=== PATIENT | female | born 1935 | race Caucasian/White ===

== ENCOUNTER → 2017-07-09 | Outpatient (CLI) | payer OTHER ==
[~2017-07-09] VITALS: Ht 162.6 cm; Wt 73.9 kg
[~2017-07-09] MED LIST: ADULT LOW DOSE81 MG PO; ALPRAZOLAM 0.50.5 M1; ALPRAZOLAM 0.50.5 M1 PO; ALPRAZOLAM 0.50.5 MG PO; AMBEREN; ASPIRIN EC81 M1 PO; ATORVASTATIN CA40 MG PO; BANOPHEN25 M1 PO; BUMETANIDE 0.50.5 M1 OR; BUMETANIDE 0.50.5 M1 PO; CARVEDILOL12.5 MG PO; CARVEDILOL25 MG PO; CELEBREX 200 M200 M1 PO; CLONAZEPAM 1 MG1 M1 PO; COLACE100 MG PO; COREG6.25 MG PO; CRESTOR20 MG PO; DITROPAN XL15 MG PO; DUCOSATE SODIUM PO; ENDOCET 5-3251 EACH PO; FIBERCON625 M1 PO; FLOMAX0.4 MG PO; FOSINOPRIL 10 M10 M1 PO; FOSINOPRIL SODI20 M1 PO; GLUCOSA-CHOND-1 EACH PO; HYDROCODON-ACE1 EAC7 PO; HYDROCODON-ACE1 EAC8 PO; HYDROCODONE-ACE15 ML PO; HYDROCODONE-AP1 EA14 PO; HYDROCODONE-AP1 EAC6 PO; IRON PO; IRON159 MG PO; IRON55 MG PO; ISOSORBIDE DINI30 MG PO; KEFLEX500 M1 PO; LASIX 20 MG TAB20 MG PO; LEVAQUIN 250 M250 MG PO; LIDODERM 5%1 PATCH TOP; MACROBID 100 M100 M1 PO; MILK OF MA400 MG/5 M PO; MULTI-VITAMIN1 EAC5 PO; MULTIVITAMIN W1 EAC5 PO; MYRBETRIQ25 MG PO; MYRBETRIQ50 MG PO; NAMENDA 10 MG T10 MG PO; NORCO 5-325 TA1 EACH PO; OMEPRAZOLE20 M2 PO; OS-CAL 500+D C1 EACH PO; OXYBUTYNIN CHLO10 MG PO; PAROXETINE PO; PAXIL 20 MG TAB20 M1 PO; PAXIL10 MG PO; PERCOCET 5-3251 EACH PO; PEXEVA40 MG PO; PRAVACHOL80 MG PO; PRAVASTATIN SOD80 MG PO; PRILOSEC 20 MG20 MG PO; RESTORIL30 MG PO; ROBAXIN 750 MG750 MG PO; SUPRAX400 M1 PO; SYNTHROID50 MCG PO; SYNTHROID75 MCG PO; TOFRANIL50 MG PO; TOVIAZ8 MG PO; TRAMADOL 50 MG50 MG PO; TURMERIC 500 M1 EACH PO; TYLENOL325 MG PO; VITAMIN B-12500 MCG PO; ZOFRAN ODT4 MG DISSOLVE; ZOFRAN ODT4 MG PO
--- NOTE | ~2017-07-09 | HPC ---
[facility] [address] [place] [address] PAIN MANAGEMENT CONSULTATION Name: KARLA BROOKS [id number] Admission: 07/09/17 Attend Phys: Aaron Shin DO Discharge: Date of : 33 Report #: [id number] THIS REPORT FOR: //name// CC: Darin Mosquera DATE OF SERVICE: 07/09/2017 CHIEF COMPLAINT: Right pelvic pain. HISTORY OF PRESENT ILLNESS: As you know, the patient is an 82-year-old female who has been suffering from right pelvic pain and right low back pain that presented in April 2017. She has been followed by Orthopedic Surgery who indicated that there was a possibility the patient suffered a spontaneous pelvic fracture. The patient underwent injections around the suspected fracture site. This did not improve symptoms. It was believed the patient may be suffering from pain in the lower back. She was referred to our clinic to discuss the possibility of treatment options. She comes to us today with imaging, but the imaging showed the pelvic fracture is not present, nor do we have information about the lower back. She indicates today pain is continuous, steady and constant. Describes the pain as shooting, cramping, aching, crushing, gnawing, throbbing, pounding, sharp and tender, places current pain score at 5/10, daily average at 8/10, worst pain has been is 10/10. The patient says pain is exacerbated with walking and standing as well as sitting, improves with hydrocodone. She has been referred to our service, discussed options for treatment. PAST MEDICAL HISTORY: 1. Scarlet fever. 2. Rheumatic fever. 3. Anemia. 4. Hypertension. 5. Coronary artery disease. 6. Hypothyroidism. 7. Chronic colon problems. 8. Multiple emotional problems. 9. Degenerative joint disease. 10. Osteoarthritis. 11. Peptic ulcer disease. PAST SURGICAL HISTORY: 1. X-STOP surgery. 2. Bilateral hip replacement. 3. Partial thyroidectomy. 4. Bilateral knee replacements. [facility] [address] [place] [address] PAIN MANAGEMENT CONSULTATION Name: KARLA BROOKS REHANA Room #: REG [facility].#: [id number] Admission: 07/09/17 Attend Phys: Aaron Shin DO Discharge: Date of : 33 Report #: [id number] 5. Reduction mammoplasty. 6. Permanent pacemaker placement. 7. Cholecystectomy. 8. Bilateral cataract surgery. SOCIAL HISTORY: The patient denies tobacco, alcohol, IV or illicit drug use. She is retired, retired 20 years ago. She is accompanied by her , present in room today. REVIEW OF SYSTEMS: Positive for fatigue and weakness, wearing corrective eyewear, sore throat, voice changes, shortness of breath, heart trouble, shortness of breath while walking or lying flat, nausea, vomiting, frequent diarrhea, constipation, nocturia, incontinence, dribbling to urine, sexual difficulty, lightheadedness, dizziness, numbness and tingling sensations, nervousness, depression, thyroid disease, excessive thirst, urination, heat and cold intolerance., right pelvic pain. All other review of systems negative per 12-point review of systems than those listed in history of present illness. Pain impact score 52/70 indicating severe interference of daily activities secondary to pain. ALLERGIES: PENICILLIN, BACTRIM, MACROBID, LEVOTHYROXINE, NITROFURANTOIN, ALL ANTI-INFLAMMATORIES, CODEINE, DEMEROL, DARVON. CURRENT MEDICATIONS: Paroxetine 40 mg per day, alprazolam 0.5 mg 3 times a day, temazepam 30 mg p.o. at bedtime, furosemide 40 mg per day, fosinopril 20 mg once a day, carvedilol 6.25 mg twice a day, atorvastatin 40 mg per day, levothyroxine 75 mcg per day, omeprazole 20 mg per day, hydrocodone 7.5/325 one tab every 6 hours p.r.n. for pain, Myrbetriq 50 mg once a day, tamsulosin 0.4 mg once a day, multivitamin 1 tab per day, aspirin 81 mg per day, Colace 100 mg 2 times a day, FiberCon 625 mg 2 tabs per day, milk of magnesia 1 per day, vitamin B12 one tablet per day. IMAGING: CT pelvis without contrast obtained on 07/02/2017 shows bilateral hip replacements without evidence of fracture or definitive hardware loosening, well corticalized ossific fragment just adjacent to the right lesser trochanter consistent with old trauma. No focal abnormality in the region of the right pubic ramus noted. Mild osteitis pubis is noted. Sigmoid diverticulosis without evidence of diverticulitis. PQRS: The patient does have a history of osteoarthritis, no rheumatoid arthritis. She is not on blood thinners. She has near complete interference of daily activities secondary to pain. She is a high fall risk. She is using a cane and periodically roller walker for ambulation. She has not had a specific fall, but is extreme risk for fall due to deconditioning and pain. She is receiving opioids through her primary care physician and not on contract with [address] [address] PAIN MANAGEMENT CONSULTATION Name: KARLA BROOKS [facility] #: [facility] [id number] Admission: 07/09/17 Attend Phys: Aaron Shin DO Discharge: Date of : 33 Report #: [id number]. She is at mild to moderate risk for opioid dependency. Pain score currently 8/10. PHYSICAL EXAMINATION: VITAL SIGNS: Blood pressure 140/73, pulse 70, respiratory rate 16, unlabored. The patient is 100% on room air. Height 5 feet 4 inches tall, weight is 163 pounds, BMI calculated at 28. GENERAL: Well-developed, well-nourished, well-hydrated 82-year-old female who appears her stated age. She is quite emotionally labile and placing pain score at around 8-10/10 depending on activity. HEENT: Normocephalic, atraumatic. Pupils equal, round, reactive to light. Extraocular muscles are intact. Sclerae nonicteric without injection. Cranial nerves 2-12 grossly intact. Speech is fluent. The patient is a poor historian. LUNGS: Clear to auscultation bilaterally. No wheeze, rhonchi or rales. CARDIOVASCULAR: Regular. No appreciable gallop or rub. ABDOMEN: Soft, obese, nontender, nondistended, normoactive bowel sounds. EXTREMITIES: Show no clubbing, no cyanosis, no edema. MUSCULOSKELETAL: Gait is extremely antalgic favoring right lower extremity over left. She is utilizing a roller walker for ambulation. Pain is elicited directly over the right pelvic area radiating around to the back. There is some palpatory tenderness over the lumbar spine. Seated straight leg raising negative. Supine straight leg raising negative. SHAWN test is positive for pain generated in the groin and low back area. Modified Gaenslen's is positive for axial low back pain. She is intact to light touch from L1 through S2 dermatomes. Deep tendon reflexes are diminished bilaterally at the patellar area, 1+/4 at the ankles bilaterally. No ankle clonus. No Babinski. ASSESSMENT: 1. Pelvic pain with possible pelvic fracture. 2. Chronic low back pain. 3. Chronic intractable pain. PLAN: 1. The patient has been referred back to our clinic for evaluation for suspected low back pain. The patient indicates that she was recently advised by her orthopedic physician's diversional therapist's assistant that she may have a pelvic fracture and this would correlate with the patient's pain and distribution. I do not have imaging to confirm this pelvic fracture and the patient's imaging that was present today does not show any type of fracture, though apparently imaging was completed recently, which did show suspected fracture and the patient underwent injections in and around to the fracture site. She indicates that the injections were "extremely painful and difficult to tolerate." The patient received no improvement in symptoms with this injection series. She sought further evaluation through her orthopedic surgeon who advised the patient that there is a possibility her symptoms may be related to the back. At that visit, she sought evaluation through our clinic. Given the discrepancy of different [address] [address] PAIN MANAGEMENT CONSULTATION Name: CECILIAKARLA KIMBALL Room #: REG [facility]#: [id number] Admission: 07/09/17 Attend Phys: Aaron Shin DO Discharge: Date of : 33 Report #: [id number] pain generators, I do recommend the patient undergo further imaging so that we can determine if a pelvic fracture does exist and if that is the case, whether stabilization would be necessary. I do not have the imaging available to me from the orthopedic surgeons and I recommend at least we gain some information with the x-ray. 2. The patient will be sent for x-ray of the pelvic area. We will assess for possible fracture. The patient can contact to clinic first thing in the morning to obtain results. If no fracture is noted, we would recommend the patient look towards conservative treatment options for low back issues and further evaluation of the lumbar spine may be necessary with MRI if the patient does not have this available. 3. We have made no changes in the patient's medical management at this time. Recommend the patient continue to take the opioids that she is receiving from her primary care team. This would be beneficial to maintain on the medication for at least a short period of time as workup continues. 4. The patient can return to our clinic on an as needed basis. Based on the findings on the x-ray, she may ultimately need to be seen again by Orthopedics if the pelvic fracture is confirmed. If no fracture is confirmed, she could return to see either our clinic or her primary care for treatment for potential back pain issues. 5. We will see the patient back in followup visit on an as needed basis. We are hopeful information from the x-ray imaging will help determine the course of treatment. We will be available to see her back on an as needed basis. <ELECTRONICALLY SIGNED> By: Aaron Shin DO 07/22/17 0926 0855 1216 Aaron Shin DO /nt
[2017-07-09 10:20] VITALS: BP 140/73
== END ==
LOC: PAIN 07:04 → RAD 07:04 → PAIN 14:45
DX: R10.2 Pelvic and perineal pain (principal); G89.29 Other chronic pain; M54.5 Low back pain; D64.9 Anemia, unspecified; I10 Essential (primary) hypertension; I25.10 Atherosclerotic heart disease of native coronary artery without angina pectoris; E03.9 Hypothyroidism, unspecified; M19.90 Unspecified osteoarthritis, unspecified site; Z96.643 Presence of artificial hip joint, bilateral; Z96.653 Presence of artificial knee joint, bilateral; Z90.49 Acquired absence of other specified parts of digestive tract; Z98.890 Other specified postprocedural states; Z88.1 Allergy status to other antibiotic agents; Z88.6 Allergy status to analgesic agent; Z88.5 Allergy status to narcotic agent

== ENCOUNTER 2017-10-06 18:26 | Emergency (ER) | payer OTHER ==
[~2017-10-06] VITALS: Ht 162.6 cm; Wt 72.6 kg
--- NOTE | ~2017-10-06 | EKG ---
[place] [address] [facility] [employer] [place] [address] ELECTROCARDIOGRAM REPORT Name: KARLA BROOKS [id number] Admission: 10/06/17 Attend Phys: Discharge: 10/06/17 Date of : 33 Report #: [id number] THIS REPORT FOR: //name// [facility] ED Test Date: 2017-10-06 Test Time: 20:09:00 Pat Name: KARLA BROOKS Department: Room: Gender: F Outdoor Recreation Specialist: MICHELLE : 1935 Requested By: Abimael Arevalo Order Number: [id number] MD: Carlos Kelley Measurements Intervals [place] Rate: 63 P: -20 MD: 250 QRS: -58 QRSD: 196 T: 116 QT: 493 QTc: 505 Interpretive Statements Sinus rhythm with ventricular pacing Compared to ECG 12/06/2015 07:25:44 First degree AV block now present Left bundle-branch block now present Electronically Signed On 10-06-2017 22:59:58 CDT by Carlos Kelley [email or web address] <ELECTRONICALLY SIGNED> By: Carlos Kelley MD 10/06/17 2259 08 08 Carlos Kelley MD /DAMARIS
[~2017-10-06 18:26] MED LIST changes: -BANOPHEN25 M1 PO; -CELEBREX 200 M200 M1 PO; -CLONAZEPAM 1 MG1 M1 PO; -COREG6.25 MG PO; -FIBERCON625 M1 PO; -FOSINOPRIL 10 M10 M1 PO; -HYDROCODON-ACE1 EAC8 PO; -KEFLEX500 M1 PO; -PAXIL 20 MG TAB20 M1 PO; -SYNTHROID50 MCG PO; -TURMERIC 500 M1 EACH PO; -ZOFRAN ODT4 MG DISSOLVE
[2017-10-06 19:10] LABS: ABSOLUTE NEUTROPHILS 3.6 thou/uL (1.4-8.2); BASOPHILS 0.9 % (0.0-2.0); EOSINOPHILS 1.2 % (0.0-3.0); HEMOGLOBIN 12.4 gm/dL (12.0-15.0); MCHC 34.4 g/dL (28.0-37.0); MCV 101.5 fL (80.0-100.0); MONOCYTES 8.2 % (1.0-8.0); PLATELET COUNT 150 thou/uL (150-400); POLYS 64.7 % (36.0-66.0); RBC 3.54 mil/uL (4.20-5.00); RDW 12.9 % (10.5-14.5); WBC 5.6 thou/uL (4.0-11.0)
[2017-10-06] MEDS ORDERED: CELEBREX 200 M200 M1 PO (19:15)
[2017-10-06] MEDS ORDERED: ZOFRAN ODT4 MG DISSOLVE (19:18)
[2017-10-06 19:21] LABS: ANION GAP 5 mmol/L (7-16); BUN 21 mg/dL (7-18); CALCIUM 9.1 mg/dL (8.5-10.1); CHLORIDE 101 mmol/L (98-107); CO2 29 mmol/L (21-32); CREATININE 1.3 mg/dL (0.6-1.0); GLUCOSE 111 mg/dL (74-106); POTASSIUM 3.6 mmol/L (3.5-5.1); SODIUM 135 mmol/L (136-145)
[2017-10-06 19:23] LABS: ALBUMIN 3.7 g/dL (3.4-5.0); LIPASE 157 U/L (73-393)
[2017-10-06 19:38] LABS: SGOT 30 U/L (15-37); SGPT 33 U/L (30-65); TOTAL BILIRUBIN 0.8 mg/dL (<0.1-1.0); TOTAL PROTEIN 6.4 g/dL (6.4-8.2); TROPONIN-I < 0.04 ng/mL (<0.06)
== END 2017-10-06 20:23 | disposition home or self-care (01) ==
LOC: ER 18:26
PROVIDERS: Emergency Medicine
DX: R19.7 Diarrhea, unspecified (principal); G89.4 Chronic pain syndrome; F41.1 Generalized anxiety disorder; Z96.653 Presence of artificial knee joint, bilateral; Z96.643 Presence of artificial hip joint, bilateral; E89.0 Postprocedural hypothyroidism; Z88.1 Allergy status to other antibiotic agents; Z88.0 Allergy status to penicillin; Z88.2 Allergy status to sulfonamides; Z88.8 Allergy status to other drugs, medicaments and biological substances

== ENCOUNTER 2017-10-09 11:32 | Inpatient (IN) | payer OTHER ==
[~2017-10-09] VITALS: Ht 162.6 cm; Wt 69.4 kg
--- NOTE | ~2017-10-09 | EKG ---
[place] [address] [facility] [place] [address] ELECTROCARDIOGRAM REPORT Name: KARLA BROOKS Room #: 453-P ADM IN M.R.#: [id number] Admission: 10/09/17 Attend Phys: Aaron Lindquist DO Discharge: Date of : 33 Report #: [id number] THIS REPORT FOR: //name// [facility] ED Test Date: 2017-10-09 Test Time: 12:14:51 Pat Name: KARLA BROOKS Department: Room: 170 10 Gender: F Medical Social Consultant: Nirmala COLÓN RN : 1935 Requested By: Ricardo Sommer Order Number: [id number] MD: Mina Zamora Measurements Intervals [place] Rate: 90 P: 84 CA: 204 QRS: -65 QRSD: 191 T: 116 QT: 427 QTc: 523 Interpretive Statements Atrial-sensed ventricular-paced complexes No further rhythm analysis attempted due to paced rhythm Compared to ECG 10/06/2017 20:09:00 Intrinsic depolarizations are no longer present Electronically Signed On 10-10-2017 8:48:53 CDT by Mina Zamora [email or web address] <ELECTRONICALLY SIGNED> By: Mina Zamora MD, FACC 10/10/17 0848 1214 1214 Mina Zamora MD, [facility] /EPI
--- NOTE | ~2017-10-09 | EKG ---
[place] [address] [place] [address] ELECTROCARDIOGRAM REPORT Name: MULUAMELIEALRichard KIMBALL Room #: 453-P ADM IN M.R.#: [id number] Admission: 10/09/17 Attend Phys: Aaron Lindquist DO Discharge: Date of : 33 Report #: [id number] THIS REPORT FOR: //name// [facility] ED Test Date: 2017-10-09 Test Time: 11:47:41 Pat Name: KARLA BROOKS Department: Room: Gender: F Java Web Application Developer: Nirmala COLÓN RN : 1935 Requested By: Ricardo Sommer Order Number: [id number] MD: Mina Zamora Measurements Intervals [place] Rate: 104 P: -28 WI: 255 QRS: -63 QRSD: 186 T: 117 QT: 416 QTc: 548 Interpretive Statements Ventricular-paced complexes No further analysis attempted due to paced rhythm Compared to ECG 10/06/2017 20:09:00 Intrinsic depolarizations are now present Electronically Signed On 10-10-2017 8:48:30 CDT by Mina Zamora [email or web address] <ELECTRONICALLY SIGNED> By: Mina Zamora MD, [facility] 10/10/17 0848 1147 1147 Mina Zamora MD, [facility] /EPI
[~2017-10-09 11:32] MED LIST changes: +CELEBREX 200 M200 M1 PO; +ZOFRAN ODT4 MG DISSOLVE
[2017-10-09 11:33] VITALS: BP 142/46
[2017-10-09 12:47] LABS: ABSOLUTE NEUTROPHILS 8.8 thou/uL (1.4-8.2); BASOPHILS 0.1 % (0.0-2.0); EOSINOPHILS 0.4 % (0.0-3.0); HEMATOCRIT 35.7 % (37.0-47.0); HEMOGLOBIN 12.2 gm/dL (12.0-15.0); LYMPHOCYTES 2.4 % (24.0-44.0); MCH 34.7 pg (26.0-34.0); MCHC 34.1 g/dL (28.0-37.0); MCV 101.9 fL (80.0-100.0); MONOCYTES 3.2 % (1.0-8.0); PLATELET COUNT 101 thou/uL (150-400); POLYS 93.9 % (36.0-66.0); RBC 3.51 mil/uL (4.20-5.00); RDW 12.7 % (10.5-14.5); WBC 9.4 thou/uL (4.0-11.0)
[2017-10-09 13:00] LABS: ANION GAP 7 mmol/L (7-16); BUN 23 mg/dL (7-18); CALCIUM 8.6 mg/dL (8.5-10.1); CHLORIDE 100 mmol/L (98-107); CO2 28 mmol/L (21-32); CREATININE 1.2 mg/dL (0.6-1.0); GLUCOSE 102 mg/dL (74-106); POTASSIUM 3.6 mmol/L (3.5-5.1); SODIUM 135 mmol/L (136-145)
[2017-10-09 13:07] LABS: ALBUMIN 3.7 g/dL (3.4-5.0); DIRECT BILIRUBIN 0.3 mg/dL (<0.1-0.3); SGOT 71 U/L (15-37); SGPT 70 U/L (30-65); TOTAL BILIRUBIN 1.1 mg/dL (<0.1-1.0); TOTAL PROTEIN 6.3 g/dL (6.4-8.2); TROPONIN-I < 0.04 ng/mL (<0.06)
[2017-10-09 13:58] LABS: URINE BILIRUBIN NEGATIVE (Negative); URINE BLOOD NEGATIVE (Negative); URINE CLARITY CLEAR; URINE COLOR YELLOW; URINE GLUCOSE-RANDOM* NEGATIVE (Negative); URINE KETONES NEGATIVE (Negative); URINE NITRITE-REFLEX NEGATIVE (Negative); URINE PROTEIN (DIPSTICK) NEGATIVE (Negative); URINE UROBILINOGEN 0.2 E.U./dl (0.2-1.0)
[2017-10-09 13:59] LABS: URINE LEUKOCYTES-REFLEX 1+ (Negative)
[2017-10-09 14:19] LABS: SQUAMOUS 4-10 Moderate /LPF (0-3)
[2017-10-09 14:20] LABS: BACTERIA-REFLEX 1-9 Few /HPF (None Seen); CASTS None Seen /LPF (None Seen); CRYSTALS None Seen /LPF (None Seen); MUCUS 4-6 Moderate strn/LPF (None Seen); URINE RBC 0-2 Rare /HPF (0-2)
[2017-10-09 17:05] VITALS: BP 114/78
[2017-10-09 17:22] VITALS: BP 138/57
[2017-10-09 17:41] VITALS: BP 148/64
[2017-10-09 19:37] VITALS: BP 134/55
[2017-10-10 04:46] LABS: CALCIUM 8.6 mg/dL (8.5-10.1); CREATININE 1.2 mg/dL (0.6-1.0); POTASSIUM 3.4 mmol/L (3.5-5.1)
[2017-10-10 04:52] LABS: ABSOLUTE NEUTROPHILS 6.3 thou/uL (1.4-8.2); BASOPHILS 0.1 % (0.0-2.0); EOSINOPHILS 0.6 % (0.0-3.0); HEMATOCRIT 31.5 % (37.0-47.0); HEMOGLOBIN 10.9 gm/dL (12.0-15.0); LYMPHOCYTES 6.1 % (24.0-44.0); MCH 35.2 pg (26.0-34.0); MCHC 34.6 g/dL (28.0-37.0); MCV 101.8 fL (80.0-100.0); MONOCYTES 5.2 % (1.0-8.0); PLATELET COUNT 96 thou/uL (150-400); RDW 12.9 % (10.5-14.5); WBC 7.2 thou/uL (4.0-11.0)
[2017-10-10 06:15] VITALS: BP 125/44
[2017-10-10 09:12] VITALS: BP 117/58
[2017-10-10] MEDS ORDERED: PAXIL 20 MG TAB20 M1 PO (13:34)
[2017-10-10 14:54] VITALS: BP 117/58
== END 2017-10-10 15:37 | disposition home or self-care (01) | DRG 690 ==
LOC: ER 11:32 → EROBS 14:40 → 4W 14:40 → ENTRNSPT 10-10 15:32 → 4W 10-10 15:37
PROVIDERS: Family Medicine; Physician Assistant
DX: N39.0 Urinary tract infection, site not specified (principal); E89.0 Postprocedural hypothyroidism; F41.9 Anxiety disorder, unspecified; R07.9 Chest pain, unspecified; G89.29 Other chronic pain; M54.9 Dorsalgia, unspecified; I10 Essential (primary) hypertension; F32.9 Major depressive disorder, single episode, unspecified; K21.9 Gastro-esophageal reflux disease without esophagitis; Z96.653 Presence of artificial knee joint, bilateral; Z96.643 Presence of artificial hip joint, bilateral; Z90.49 Acquired absence of other specified parts of digestive tract; Z98.42 Cataract extraction status, left eye; Z98.41 Cataract extraction status, right eye; Z95.0 Presence of cardiac pacemaker; Z79.82 Long term (current) use of aspirin; Z79.899 Other long term (current) drug therapy; Z88.1 Allergy status to other antibiotic agents; Z88.5 Allergy status to narcotic agent; Z88.0 Allergy status to penicillin; Z88.2 Allergy status to sulfonamides; Z88.8 Allergy status to other drugs, medicaments and biological substances
CPT/HCPCS: 10045

== ENCOUNTER 2017-10-31 19:54 | Inpatient (IN) | payer OTHER ==
[~2017-10-31] VITALS: Ht 165.1 cm; Wt 75.3 kg
--- NOTE | ~2017-10-31 | HC ---
[facility] [place] [address] CONSULTATION Name: KARLA BROOKS Room #: 221-P [facility] IN M.R.#: [id number] Admission: 10/31/17 Attend Phys: Wilbur Esparza, Discharge: 11/03/17 Date of : 33 Report #: [id number] THIS REPORT FOR: //name// CC: Ange Esparza TYPE OF REPORT: Infectious diseases consultation. REASON FOR CONSULTATION: I was asked to evaluate concerning urinary tract infection. HISTORY OF PRESENT ILLNESS: The patient was an 82-year old who was admitted on 10/31/2017 with dysuria. She has been on outpatient oral therapy. Placed on ciprofloxacin. Subsequently, she has developed rash to her extremities. She does have a history of having a rash to Levaquin. Urinalysis showed many wbc's and moderate bacteria. She had repeat study done today, which shows evidence of a few bacteria and no bacteria seen. She did have yeast present. Her dysuria has resolved. Overall, feels normal. She states back to her baseline. The patient has had issues with recurrent urinary tract infection for the last 10 years. She had bladder suspension surgery and she states she still has not improved her issues. She has urinary incontinence. No incomplete emptying reported. She states she sees her urologist, Dr. Giordano who does postvoid evaluations noting complete emptying of her bladder. She does wear a pad for incontinence. ALLERGIES: Multiple including PENICILLIN with rash although she does tolerate cephalosporins, LEVAQUIN, CIPRO, NITROFURANTOIN, SULFA, MORPHINE, NONSTEROIDAL ANTI-INFLAMMATORIES, COMPAZINE, CODEINE, HYDROCHLOROTHIAZIDE, DEMEROL and PROPOXYPHENE. MEDICATIONS: As noted on her MAR including the ciprofloxacin. Prior to her admission, she was on Celebrex, Zofran, vitamin B12, Colace, Restoril, multivitamin, Lipitor, Coreg, fosinopril, Synthroid, clonazepam, FiberCon, hydrocodone, Lasix, omeprazole, tamsulosin, aspirin, Os-Sameer, magnesium, mirabegron and clonazepam. PAST MEDICAL HISTORY: Bilateral total hip arthroplasties, bilateral total knee arthroplasty, permanent pacemaker, cholecystectomy, thyroidectomy, cataract surgery, has anxiety, urinary incontinence and recurrent urinary tract infections. FAMILY HISTORY: Noncontributory. SOCIAL HISTORY: Nonsmoker. No significant alcohol intake. REVIEW OF SYSTEMS: Denies any cardiopulmonary, GI or joint issues. [address] [address] CONSULTATION Name: KARLA BROOKS Room #: 221-P DIS IN .R.#: [id number] Admission: 10/31/17 Attend Phys: Wilbur Esparza DO Discharge: 11/03/17 Date of : 33 Report #: [id number] PHYSICAL EXAMINATION: VITAL SIGNS: She is afebrile, hemodynamically stable, alert and cooperative, sitting up in her chair, eating her dinner. HEENT: Unremarkable. NECK: Supple. No adenopathy. SKIN: Several erythematous patches to her upper and lower extremities. LUNGS: Clear. HEART: Regular, without murmur. ABDOMEN: Soft and nontender. No CVA tenderness. EXTREMITIES: Unremarkable. GENITAL AND RECTAL: Not performed. LABORATORY STUDIES: Urinalysis as noted above. Urine culture 10,000 Pseudomonas aeruginosa, pansensitive from 10/31/2017. Blood cultures are negative. Sodium 138, potassium 4.3, bicarbonate 25 and creatinine 1.3. Folic acid 38. TSH 0.8. Vitamin B 1324. Hemoglobin 10.4; WBC 4.9; platelet count 127,000 and differential unremarkable. IMPRESSION: An 82-year old with recurring cystitis. She has responded to a 4-day course of ciprofloxacin. Now having rash most likely from the ciprofloxacin. She is afebrile with no urinary tract symptoms at this time. Her white count is normal. Urinalysis markedly improved. RECOMMENDATIONS: Recommend discontinuation of the ciprofloxacin and I would observe off antibiotics at this point in time. I did recommend appropriate vulvar hygiene techniques along with frequent changing of her hygiene pad. Follow up with primary care if estrogen cream may be of benefit. We would consider adding cranberry juice to her diet. We will see how she does over the next week or so. If she should have recurring symptoms, we would be more than happy to reevaluate as an outpatient. She states she has had full workup by Urology regarding her voiding issues. By: 1750 0118 Abimael Khan MD /nt
[~2017-10-31 19:54] MED LIST changes: +PAXIL 20 MG TAB20 M1 PO
[2017-10-31 19:55] VITALS: BP 136/71
[2017-10-31] MEDS ORDERED: KEFLEX500 M1 PO (20:14)
[2017-10-31 20:38] LABS: URINE CLARITY SL CLOUDY; URINE COLOR ORANGE
[2017-10-31 20:46] LABS: ICTOTEST (BILI CONFIRMATORY) Negative (Negative); URINE REDUCING SUBSTANCE NEGATIVE
[2017-10-31 20:50] LABS: RENAL EPITHELIAL CELLS 0-3 Few /LPF (None Seen); SQUAMOUS 0-3 Few /LPF (0-3); TRANSITIONAL EPITHEL CELL 0-3 Few /LPF (None Seen); URINE WBC-REFLEX >25 Many /HPF (0-5); WBC CLUMPS Few (None Seen)
[2017-10-31 20:51] LABS: CASTS None Seen /LPF (None Seen); CRYSTALS None Seen /LPF (None Seen); MUCUS 0-3 Light strn/LPF (None Seen); URINE RBC 0-2 Rare /HPF (0-2)
[2017-10-31 20:57] LABS: SSA (PROTEIN CONFIRMATORY) NEGATIVE (Negative)
[2017-10-31 21:20] LABS: ABSOLUTE NEUTROPHILS 2.8 thou/uL (1.4-8.2); BASOPHILS 0.6 % (0.0-2.0); EOSINOPHILS 1.9 % (0.0-3.0); HEMATOCRIT 30.6 % (37.0-47.0); HEMOGLOBIN 10.4 gm/dL (12.0-15.0); MCH 34.6 pg (26.0-34.0); MCHC 33.9 g/dL (28.0-37.0); MCV 102.1 fL (80.0-100.0); PLATELET COUNT 127 thou/uL (150-400); POLYS 57.5 % (36.0-66.0); RDW 12.4 % (10.5-14.5); WBC 4.9 thou/uL (4.0-11.0)
[2017-10-31 21:42] LABS: CALCIUM 8.8 mg/dL (8.5-10.1); CREATININE 1.4 mg/dL (0.6-1.0); POTASSIUM 3.9 mmol/L (3.5-5.1)
[2017-10-31 21:45] LABS: ALBUMIN 3.2 g/dL (3.4-5.0); TOTAL BILIRUBIN 0.5 mg/dL (<0.1-1.0); TOTAL PROTEIN 5.6 g/dL (6.4-8.2)
[2017-10-31 22:22] VITALS: BP 136/71
[2017-10-31 22:40] VITALS: BP 138/74
[2017-10-31] MEDS ORDERED: ATORVASTATIN CA40 MG PO (23:03)
[2017-10-31] MEDS ORDERED: COREG6.25 MG PO (23:04)
[2017-10-31] MEDS ORDERED: FOSINOPRIL 10 M10 M1 PO (23:09)
[2017-10-31] MEDS ORDERED: SYNTHROID50 MCG PO (23:10)
[2017-10-31] MEDS ORDERED: PAXIL10 MG PO (23:12)
[2017-10-31] MEDS ORDERED: CLONAZEPAM 1 MG1 M1 PO (23:12)
[2017-10-31] MEDS ORDERED: FIBERCON625 M1 PO (23:14)
[2017-10-31] MEDS ORDERED: TURMERIC 500 M1 EACH PO (23:15)
[2017-10-31] MEDS ORDERED: HYDROCODON-ACE1 EAC8 PO (23:17)
[2017-10-31 23:23] VITALS: BP 166/69
[2017-11-01 04:00] VITALS: BP 172/66
[2017-11-01 09:20] VITALS: BP 174/84
[2017-11-01 11:23] LABS: TSH 0.849 uIU/mL (0.358-3.740)
[2017-11-01] MEDS ORDERED: CLONAZEPAM 1 MG1 M1 PO (14:40)
[2017-11-01 21:22] VITALS: BP 162/60
[2017-11-02 08:21] VITALS: BP 170/72
[2017-11-02 09:14] LABS: CALCIUM 9.8 mg/dL (8.5-10.1); CREATININE 1.3 mg/dL (0.6-1.0); POTASSIUM 4.3 mmol/L (3.5-5.1)
[2017-11-02 17:58] VITALS: BP 149/61
[2017-11-02 19:56] VITALS: BP 145/66
[2017-11-03 08:30] VITALS: BP 184/81
[2017-11-03 12:43] VITALS: BP 139/64
[2017-11-03 16:18] LABS: URINE BILIRUBIN NEGATIVE (Negative); URINE BLOOD NEGATIVE (Negative); URINE CLARITY CLEAR; URINE COLOR YELLOW; URINE GLUCOSE-RANDOM* NEGATIVE (Negative); URINE KETONES NEGATIVE (Negative); URINE NITRITE-REFLEX NEGATIVE (Negative); URINE PROTEIN (DIPSTICK) NEGATIVE (Negative); URINE SPECIFIC GRAVITY <= 1.005 (1.005-1.035); URINE UROBILINOGEN 0.2 E.U./dl (0.2-1.0)
[2017-11-03 16:20] LABS: URINE LEUKOCYTES-REFLEX 1+ (Negative)
[2017-11-03 16:32] LABS: CASTS None Seen /LPF (None Seen); SQUAMOUS 0-3 Few /LPF (0-3); URINE RBC None Seen /HPF (0-2); URINE WBC-REFLEX 6-15 Few /HPF (0-5)
[2017-11-03 16:33] LABS: BACTERIA-REFLEX None Seen /HPF (None Seen); CRYSTALS None Seen /LPF (None Seen); MUCUS 0-3 Light strn/LPF (None Seen); YEAST-REFLEX Present (None Seen)
[2017-11-03] MEDS ORDERED: BANOPHEN25 M1 PO (18:00)
[2017-11-03 18:17] VITALS: BP 159/80
[2017-11-03 18:25] VITALS: BP 159/80
== END 2017-11-03 18:45 | disposition home health service (06) | DRG 682 ==
LOC: ER 19:54 → EROBS 22:07 → SICU 22:07 → 4W 22:39 → SICU 11-01 14:07
PROVIDERS: Hospitalist; Internal Medicine Geriatric Medicine; Nurse Practitioner Family
DX: N17.9 Acute kidney failure, unspecified (principal); E43 Unspecified severe protein-calorie malnutrition; N39.0 Urinary tract infection, site not specified; N18.3 Chronic kidney disease, stage 3 (moderate); F41.9 Anxiety disorder, unspecified; I12.9 Hypertensive chronic kidney disease with stage 1 through stage 4 chronic kidney disease, or unspecified chronic kidney disease; Z95.0 Presence of cardiac pacemaker; Z79.899 Other long term (current) drug therapy; Z79.82 Long term (current) use of aspirin; Z88.2 Allergy status to sulfonamides; Z88.6 Allergy status to analgesic agent; Z88.8 Allergy status to other drugs, medicaments and biological substances
CPT/HCPCS: 10040; 15000

== ENCOUNTER 2018-07-29 05:35 | Inpatient (IN) | payer OTHER ==
[~2018-07-29] VITALS: Ht 165.1 cm; Wt 77.1 kg
[~2018-07-29 05:35] MED LIST changes: +BANOPHEN25 M1 PO; +CLONAZEPAM 1 MG1 M1 PO; +COREG6.25 MG PO; +FIBERCON625 M1 PO; +FOSINOPRIL 10 M10 M1 PO; +HYDROCODON-ACE1 EAC8 PO; +KEFLEX500 M1 PO; +SYNTHROID50 MCG PO; +TURMERIC 500 M1 EACH PO
[2018-07-29 05:36] VITALS: BP 139/55
--- NOTE | 2018-07-29 06:00 | NUR ---
CONTACTED LAB FOR ASSISTANCE IN OBTAINING LABS
--- NOTE | 2018-07-29 06:07 | NUR ---
PT IS NOT ABLE TO PROVIDE A URINE SAMPLE YET DUE TO DEHYDRATION
[2018-07-29 06:44] LABS: ABSOLUTE NEUTROPHILS 3.3 thou/uL (1.4-8.2); BASOPHILS 0.1 % (0.0-2.0); HEMATOCRIT 37.4 % (37.0-47.0); HEMOGLOBIN 12.7 gm/dL (12.0-15.0); LYMPHOCYTES 6.5 % (24.0-44.0); MCH 33.6 pg (26.0-34.0); MCHC 33.9 g/dL (28.0-37.0); MCV 99.3 fL (80.0-100.0); MONOCYTES 4.2 % (1.0-8.0); PLATELET COUNT 128 thou/uL (150-400); POLYS 89.2 % (36.0-66.0); RBC 3.76 mil/uL (4.20-5.00); RDW 13.5 % (10.5-14.5); WBC 3.7 thou/uL (4.0-11.0)
[2018-07-29 06:58] LABS: CALCIUM 8.9 mg/dL (8.5-10.1); CREATININE 1.3 mg/dL (0.6-1.0); POTASSIUM 3.7 mmol/L (3.5-5.1)
[2018-07-29 07:04] LABS: ALBUMIN 3.2 g/dL (3.4-5.0); TOTAL BILIRUBIN 0.7 mg/dL (<0.1-1.0); TOTAL PROTEIN 6.2 g/dL (6.4-8.2)
[2018-07-29 11:10] LABS: URINE BILIRUBIN NEGATIVE (Negative); URINE BLOOD TRACE (Negative); URINE CLARITY CLEAR; URINE COLOR YELLOW; URINE GLUCOSE-RANDOM* NEGATIVE (Negative); URINE KETONES NEGATIVE (Negative); URINE LEUKOCYTES-REFLEX NEGATIVE (Negative); URINE PROTEIN (DIPSTICK) NEGATIVE (Negative); URINE SPECIFIC GRAVITY <= 1.005 (1.005-1.035); URINE UROBILINOGEN 0.2 E.U./dl (0.2-1.0)
[2018-07-29 11:12] LABS: URINE NITRITE-REFLEX POSITIVE (Negative)
[2018-07-29 11:30] LABS: CASTS None Seen /LPF (None Seen); CRYSTALS None Seen /LPF (None Seen); SQUAMOUS 4-10 Moderate /LPF (0-3)
[2018-07-29 11:31] LABS: URINE RBC 0-2 Rare /HPF (0-2); URINE WBC-REFLEX 6-15 Few /HPF (0-5)
[2018-07-29 12:28] VITALS: BP 144/47
[2018-07-29 12:30] VITALS: BP 144/47
[2018-07-29 13:00] VITALS: BP 142/49
[2018-07-29] MEDS ORDERED: ZOFRAN ODT4 MG DISSOLVE ×2 (16:20)
[2018-07-29 18:07] VITALS: BP 142/49
== END 2018-07-29 17:35 | disposition home or self-care (01) | DRG 682 ==
LOC: ER 05:35 → ICU 10:05 → EROBS 10:05 → ICU 12:55
PROVIDERS: Emergency Medicine; ADMIT Hospitalist
DX: N17.9 Acute kidney failure, unspecified (principal); E43 Unspecified severe protein-calorie malnutrition; N39.0 Urinary tract infection, site not specified; K52.9 Noninfective gastroenteritis and colitis, unspecified; K29.70 Gastritis, unspecified, without bleeding; E86.0 Dehydration; I10 Essential (primary) hypertension; F41.9 Anxiety disorder, unspecified; F32.9 Major depressive disorder, single episode, unspecified; E78.5 Hyperlipidemia, unspecified; E03.9 Hypothyroidism, unspecified; R26.81 Unsteadiness on feet; R32 Unspecified urinary incontinence; Z95.0 Presence of cardiac pacemaker; Z79.899 Other long term (current) drug therapy; Z88.1 Allergy status to other antibiotic agents; Z88.5 Allergy status to narcotic agent; Z88.2 Allergy status to sulfonamides; Z88.8 Allergy status to other drugs, medicaments and biological substances; Z88.6 Allergy status to analgesic agent
CPT/HCPCS: 10196

== ENCOUNTER 2018-07-30 15:46 | Inpatient (IN) | payer OTHER ==
[~2018-07-30] VITALS: Ht 165.1 cm; Wt 77.1 kg
[2018-07-30 15:46] VITALS: BP 141/56
[2018-07-30 16:31] LABS: ABSOLUTE NEUTROPHILS 1.9 thou/uL (1.4-8.2); BASOPHILS 0.5 % (0.0-2.0); EOSINOPHILS 0.4 % (0.0-3.0); HEMOGLOBIN 10.9 gm/dL (12.0-15.0); LYMPHOCYTES 26.9 % (24.0-44.0); MCH 33.8 pg (26.0-34.0); MCHC 34.1 g/dL (28.0-37.0); MONOCYTES 10.6 % (1.0-8.0); PLATELET COUNT 110 thou/uL (150-400); POLYS 61.6 % (36.0-66.0); RBC 3.23 mil/uL (4.20-5.00); RDW 13.3 % (10.5-14.5); WBC 3.1 thou/uL (4.0-11.0)
[2018-07-30 16:39] LABS: CALCIUM 8.5 mg/dL (8.5-10.1); CREATININE 1.3 mg/dL (0.6-1.0); POTASSIUM 3.4 mmol/L (3.5-5.1)
[2018-07-30 17:15] VITALS: BP 140/60
[2018-07-30 17:20] VITALS: BP 147/62
[2018-07-30 17:39] VITALS: BP 140/71
--- NOTE | 2018-07-30 18:00 | NUR ---
PT ARRIVED AROUND 1744, A&0X4, ACCOMPANIED BY SPOUSE, USES A CANE FOR AMB, HAS BEEN USING A&D OINTMENT ON HER RECTUM FOR LOOSE STOOLS X2 DAYS, WAS IN OUR ED YESTERDAY, YET LEFT AMA, CAME BACK TODAY. PIV, NO SKIN ISSUES UPON ASSESSMENT, RA, ENCOURAGED TO USE CALL LIGHT FOR NEEDS
[2018-07-30 19:16] VITALS: BP 165/73
[2018-07-31 03:24] VITALS: BP 133/55
--- NOTE | 2018-07-31 05:27 | NUR ---
PT IS ALERT ND ORIENTED TO SELF PLACE AND SITUATION. SHE GETS CONFUSED AT TIMES. WITH SOME STRESS INCONTINENCE. REQUIRES ASSIST X 1 TO BSC DUE TO WEAKNESS. NO BM THRO NIGHT-STILL AWAITING STOOL SAMPLE. ON ISOLATION FOR PRESUMPTIVE CDIFF.NO NAUSEA OR VOMITING THRO NIGHT. AFEBRILE. ON CLR LIQUIDS. TAKES MEDS OKAY. FALL PREC IN PLACE. WILL CONTINUE WITH POC TILL EOS.
[2018-07-31 05:51] LABS: HEMATOCRIT 30.5 % (37.0-47.0); HEMOGLOBIN 10.1 gm/dL (12.0-15.0); MCH 33.1 pg (26.0-34.0); MCV 100.1 fL (80.0-100.0); PLATELET COUNT 104 thou/uL (150-400); RBC 3.05 mil/uL (4.20-5.00); RDW 13.4 % (10.5-14.5); WBC 2.7 thou/uL (4.0-11.0)
[2018-07-31 06:06] LABS: CALCIUM 8.5 mg/dL (8.5-10.1); MAGNESIUM 1.6 mg/dL (1.8-2.4); POTASSIUM 3.7 mmol/L (3.5-5.1)
[2018-07-31 06:34] LABS: ABSOLUTE NEUTROPHILS 1.4 thou/uL (1.4-8.2)
[2018-07-31 06:35] LABS: ANISOCYTOSIS 2+; PLATELET ESTIMATE DECREASED
--- NOTE | 2018-07-31 12:32 | NUR ---
ASSESSMENT-PT LIVES WITH HER IN AN INDEPENDENT APT AT [facility]. SHE USES A CANE TO GET AROUND AND DOES HER ADLS. SHE HAS BARS AROUND HER TOILET TO ASSIST WITH GETTING UP/DOWN. THEY GO TO THE DINING AREA FOR DINNER BUT EAT BREAKDAST AND LUNCH IN THEIR APT. BOTH DRIVE. THEY HAVE 3 SONS IN THE AREA. [facility] FOLLOWING TO ASSIST WITH DC PLANNING. PT VOICES NO DC CONCERNS AT THIS TIME.
--- NOTE | 2018-07-31 13:35 | NUR ---
Assumed pt care at 7am.Pt up in chair for breakfast.Good appetite.Assessment completed.vss.Dr Grover and Kailee saw pt this am and contemplating dc pt home in am.Later this afternoon,pt called out and said she will like to dc home today. Dr Grover notified by piano case and bench assembler.Will continue to monitor.
[2018-07-31 17:42] VITALS: BP 149/66
== END 2018-07-31 18:01 | disposition home or self-care (01) | DRG 683 ==
LOC: ER 15:46 → 4E 16:56 → EROBS 16:56 → 4E 17:22
PROVIDERS: Nurse Practitioner; Student in an Organized Health Care Education/Training Program; ADMIT Hospitalist
DX: N17.9 Acute kidney failure, unspecified (principal); N39.0 Urinary tract infection, site not specified; K52.9 Noninfective gastroenteritis and colitis, unspecified; E87.6 Hypokalemia; E86.0 Dehydration; Z96.643 Presence of artificial hip joint, bilateral; Z96.653 Presence of artificial knee joint, bilateral; F41.9 Anxiety disorder, unspecified; E03.9 Hypothyroidism, unspecified; F32.9 Major depressive disorder, single episode, unspecified; E78.5 Hyperlipidemia, unspecified; E83.42 Hypomagnesemia; K21.9 Gastro-esophageal reflux disease without esophagitis; I10 Essential (primary) hypertension; Z87.440 Personal history of urinary (tract) infections; Z95.0 Presence of cardiac pacemaker; Z90.49 Acquired absence of other specified parts of digestive tract; Z98.42 Cataract extraction status, left eye; Z98.41 Cataract extraction status, right eye; Z88.6 Allergy status to analgesic agent; Z88.1 Allergy status to other antibiotic agents; Z88.0 Allergy status to penicillin; Z88.2 Allergy status to sulfonamides; Z88.8 Allergy status to other drugs, medicaments and biological substances; Z79.899 Other long term (current) drug therapy
CPT/HCPCS: 10084

== ENCOUNTER 2018-08-26 21:28 | Emergency (ER) | payer OTHER ==
[~2018-08-26] VITALS: Ht 165.1 cm; Wt 78.0 kg
[2018-08-26] MEDS ORDERED: TRAMADOL 50 MG50 MG PO (22:44)
[2018-08-26 23:23] VITALS: BP 170/60
== END 2018-08-26 23:20 | disposition home or self-care (01) ==
LOC: ER 21:28
DX: S93.602A Unspecified sprain of left foot, initial encounter (principal); W22.8XXA Striking against or struck by other objects, initial encounter; Y93.89 Activity, other specified; Y92.89 Other specified places as the place of occurrence of the external cause; Y99.8 Other external cause status; Z96.643 Presence of artificial hip joint, bilateral; Z96.653 Presence of artificial knee joint, bilateral; Z79.899 Other long term (current) drug therapy; Z88.0 Allergy status to penicillin; Z88.1 Allergy status to other antibiotic agents; Z88.2 Allergy status to sulfonamides; Z88.5 Allergy status to narcotic agent; Z88.6 Allergy status to analgesic agent; Z88.8 Allergy status to other drugs, medicaments and biological substances

== ENCOUNTER → 2018-11-25 | Outpatient (CLI) | payer OTHER | LOC: RAD 13:09 | DX: Z12.31 Encounter for screening mammogram for malignant neoplasm of breast (principal) ==

== ENCOUNTER 2019-11-14 22:10 | Inpatient (IN) | payer OTHER ==
[~2019-11-14] VITALS: Ht 165.1 cm; Wt 84.6 kg
--- NOTE | ~2019-11-14 | EMS ---
[place] [id number] EMS Patient Care Report Name: KARLA BROOKS Room #: REG ONELIA [facility]uddleston#: [id number] Admission: 11/14/19 Attend Phys: Discharge: Date of : 33 Report #: [id number] THIS REPORT FOR: //name// Report Transmitted: 11/15/2019 00:07 EMS Care Summary [place], [place]/[facility] Incident [id number] @ 11/14/2019 21:36 Incident Location [address] [place] [address] Patient KARLA BROOKS Female, 84 Years 1935 Patient Address [address] [place] [address] Patient History Congestive Heart Failure (CHF),Hypertension (HTN),Anxiety, Patient Allergies Penicillin allergy,Bactrim,Nitrofurantoin,Cipro, Patient Medications Paroxetine, Aspirin, Lisinopril, Omeprazole, Iron, Tamsulosin, Clonazepam, Carvedilol, Atorvastatin, Furosemide, Chief Complaint Fracture or dislocation of left wrist Disposition Transported No Lights/[place] Dispatch Reason Falls Transported To [facility] Narrative Initially dispatched with [facility] 28 for a fall. Upon EMS arrival patient was found laying on the ground in her living room, obvious [place] [address] EMS Patient Care Report Name: KARLA BROOKS Room #: REG [place]#: [id number] Admission: 11/14/19 Attend Phys: Discharge: Date of : 33 Report #: [id number] (unsure if fracture or dislocation), skin tear to left upper arm, conscious and alert. Patient reports losing her balance, falling from a standing position, and injuring her arm. She denied any loss of consciousness or other injuries. Patient reported being very upset at the four people in her bed that did not help her when she was yelling for help. There was no signs of other people being in her bed. A CLAUDIA splint was used to splint the patient's arm and she was placed on the stretcher and secured. park attendant reported that family stated that patient had been talking about people that were not actually there for a couple of weeks. Patient was moved to the ambulance and loaded in. She was [facility] without incident. Full report was given to RN prior to signing this document. Initial Vitals @21:59P: 74,R: 18,BP: 184/68,Pain: 8/10,GCS: 15,SpO2: 97,Revised Trauma: 12, Assessments @21:45MENTAL:Hallucinations,SKIN:No Abnormalities,HEENT:Head/Face: No Abnormalities,Eyes: No Abnormalities,Neck/Airway: No Abnormalities,LUNG SOUNDS:ABDOMEN:PELVIS//GI:EXTREMITIES:Left Arm: DIS,Right Arm: No Abnormalities,Left Leg: No Abnormalities,Right Leg: No Abnormalities,PULSE:NEURO:No Abnormalities, Impression Injury of Wrist, Hand, or Fingers Procedures @21:45ALS AssessmentResponse: UnchangedSucceeded@21:46Splint Fx/Disloc.Response: UnchangedSucceeded Timeline 21:33,Call Received 21:33,Dispatch Notified 21:36,Dispatched 21:37,En Route 21:42,On Scene 21:45,At Patient 21:45,ALS Assessment,Response: UnchangedSucceeded, 21:46,Splint Fx/Disloc.,Response: UnchangedSucceeded, 21:59,BP: 184/68 M,PULSE: 74,RR: 18 R,SPO2: 97 Ox,ETCO2: ,BG: ,PAIN: 8,GCS: 15, 22:01,Depart Scene 22:06,At Destination 22:17,Call Closed Disclaimer v1.1 Copyright 2020 [employer] This EMS Care Summary contains data elements from the applicable legal record [address] [address] EMS Patient Care Report Name: KARLA BROOKS Room #: REG ON[facility]udd[facility]#: [id number] Admission: 11/14/19 Attend Phys: Discharge: Date of : 33 Report #: [id number] (which may be displayed differently). It is designed to provide pertinent information for the following purposes: continuity of care, clinical quality, and state data reporting. The complete legal record is available to ED staff and administrators of the receiving hospital in [employer]'s Patient Tracker. All data is provided "as is."
[2019-11-14 22:11] VITALS: BP 172/78
[2019-11-14 23:38] LABS: ABSOLUTE NEUTROPHILS 2.6 thou/uL (1.4-8.2); BASOPHILS 0.6 % (0.0-2.0); EOSINOPHILS 4.4 % (0.0-3.0); HEMATOCRIT 33.3 % (37.0-47.0); HEMOGLOBIN 11.4 gm/dL (12.0-15.0); MCH 34.9 pg (26.0-34.0); MCHC 34.2 g/dL (28.0-37.0); MONOCYTES 9.6 % (1.0-8.0); PLATELET COUNT 124 thou/uL (150-400); POLYS 58.4 % (36.0-66.0); RBC 3.26 mil/uL (4.20-5.00); RDW 13.8 % (10.5-14.5); WBC 4.4 thou/uL (4.0-11.0)
[2019-11-14 23:54] LABS: URINE BILIRUBIN NEGATIVE (Negative); URINE BLOOD NEGATIVE (Negative); URINE CLARITY CLEAR; URINE COLOR YELLOW; URINE GLUCOSE-RANDOM* NEGATIVE (Negative); URINE KETONES NEGATIVE (Negative); URINE LEUKOCYTES-REFLEX NEGATIVE (Negative); URINE PROTEIN (DIPSTICK) NEGATIVE (Negative); URINE SPECIFIC GRAVITY <= 1.005 (1.005-1.035); URINE UROBILINOGEN 0.2 E.U./dl (0.2-1.0)
[2019-11-14 23:59] LABS: CREATININE 1.5 mg/dL (0.6-1.0); POTASSIUM 3.6 mmol/L (3.5-5.1)
[2019-11-15 00:02] LABS: URINE NITRITE-REFLEX POSITIVE (Negative)
[2019-11-15 00:13] LABS: BACTERIA-REFLEX >30 Many /HPF (None Seen); CASTS None Seen /LPF (None Seen); CRYSTALS None Seen /LPF (None Seen); MUCUS None Seen strn/LPF (None Seen); SQUAMOUS None Seen /LPF (0-3); URINE RBC None Seen /HPF (0-2); URINE WBC-REFLEX None Seen /HPF (0-5)
[2019-11-15 01:50] VITALS: BP 172/72
--- NOTE | 2019-11-15 02:24 | NUR ---
NOTIFIED DRY CHAIN OPERATOR THAT PATIENT REMAINS WITHOUT IV. THIS CHARGE NURSE NOTIFIED [employer]JECTS CONSULTANT FOR HOSPITALIST GROUP WHO WOULD PREFER THE PATIENT TO HAVE IV ACCESS. HOWEVER, PATIENT STUCK THREE MORE TIMES WITH ULTRASOUND AT BEDSIDE. FLASH OBTAINED, NOT ABLE TO THREAD OR FLUSH FOR PATENT LINE. NOTIFIED DRY CHAIN OPERATOR THAT PATIENT WILL NEED IV CONSULT.
[2019-11-15 02:56] VITALS: BP 140/60
--- NOTE | 2019-11-15 04:56 | NUR ---
PATIENT ARRIVED ON UNIT AT 0230 VIA CART FROM ED ACCOMPAINED BY ED MARISA. PATIENT ALERT AND ORIENTED X4. L ARM HAS SPLINT ON IT. FINGER WARM AND MOVE WELL. PATIENT HAS NO IV ACCESS AFTER SEVERAL TRIES IN THE ED. PATIENT HAS A PACEMAKER. PATIENT IS A MAX OF 2. PATIENT IS A FULL CODE. C/O PAIN IN L WRIST. MED WAS GIVEN BUT STILL WAS IN A LOT OF PAIN. OREDER WAS RECIEVED TO GIVE AN EXTRA PAIN MED. SLEPT LITTLE THIS SHIFT.
--- NOTE | 2019-11-15 07:52 | EKG ---
[facility] [place] [address] ELECTROCARDIOGRAM REPORT Name: CECILIAKARLA Room #: 437-P ADM IN M.R.#: [id number] Admission: 11/15/19 Attend Phys: Estephania Kendrick MD Discharge: Date of : 31 Report #: [id number] THIS REPORT FOR: cc: Ange Mosquera MD, Julie MD Lundgren,Mina Rubi MD [facility] ~ THIS REPORT FOR: //name// [facility] ED Test Date: 2019-11-14 Test Time: 22:44:09 Pat Name: KARLA BROOKS Department: Room: [facility] Gender: F Yoker Machine Operator: FAVIOLA : 1935 Requested By: Baltazar Aponte Order Number: [id number] MD: Mina Zamora Measurements Intervals [place] Rate: 85 P: -72 FL: 180 QRS: -51 QRSD: 141 T: 154 QT: 478 QTc: 569 Interpretive Statements Ventricular-paced complexes No further analysis attempted due to paced rhythm Compared to ECG 10/09/2017 12:14:51 Intrinsic depolarizations are now present Electronically Signed On 11-15-2019 7:51:02 CDT by Mina Zamora [email or web address] <ELECTRONICALLY SIGNED> By: Mina Zamora MD, [facility] 11/15/19 [id number] Mina Zamora MD, [facility] /EPI
[2019-11-15 08:18] VITALS: BP 151/59
--- NOTE | 2019-11-15 10:04 | NUR ---
VASCULAR ACCESS CONSULTED FOR MIDLINE. PT'S LABS,MEDS,HISTORY VERIFIED. DISCUSSED BENEFITS AND RISK OF ML WITH PT,VERBALIZED UNDERSTANDING AND GAVE VERBAL CONSENT. 4FR POWER MIDLINE TRIMMED TO 12CM INSERTED TO 0CM. LISBETH BASILIC WAS WIDELY PATENT WITH USG . PT TOLERATED WELL. ML RELEASED FOR IMMEDIATE USE TO [facility]IZABETH JEWELL PER PROTOCOL
--- NOTE | 2019-11-15 15:12 | NUR ---
INITIAL ASSESSMENT: Reviewed chart and spoke with nursing and attending physician. Pt was admitted from [facility] due to recent fall in her apt. Pt with left wrist fracture. Wrist splinted. No plans for surgical intervention at this time. VERO attempted to reach pt several times via phone. No answer. VERO contacted [place] liaison to request contact info for pt's family. Pt's three sons' phone number provided. Recommendation made for pt to go to SNF. VERO spoke with pt's son, Sagar ([phone]) via phone. Introduced role of VERO. Pt lives alone in her apt at [facility]. Pt's spouse in July. Pt normally uses a walker. Pt's family had arranged for pt to have additional services in her apt. VERO discussed recommendation for SNF upon discharge from the hospital. Pt's son is agreeable with referral to [facility] and states that he would like to discuss with his mother. VERO faxed referral to [facility] SNF for review. Notified [place] liaison of new referral. Pt will need COVID test prior to discharge. VERO notified attending physician to request COVID test. VERO is following to assist as needed with discharge planning.
[2019-11-15 15:49] VITALS: BP 147/63
--- NOTE | 2019-11-15 18:10 | NUR ---
PT ASSESSED AT START OF SHIFT. PT W/ LT WRIST FRACTURE IN IMMOBILIZER. RT FINGERS SWOLLEN AND BRUISED. PT ABLE TO WIGGLE FINGERS AND HAS GOOD FEELING. LT ARM ELEVATED AND ICE PACK APPLIED. POST VOID RESIDUAL 311 MLS AND STR CATH WAS 300MLS. PT VOIDED ON BSC WELL. SOME MILD CONFUSION AND STORIES OF HALLUCINATIONS. SPOKE W/ SON MELE AND HE STATED PT HAS BEEN HAVING HALLUCINATIONS FOR SEVERAL WEEKS. PLAN FOR PT TO GO TO REHAB AND FOLLOW UP W/ ORTHO IN ONE WEEK FOR CAST PLACEMENT.
--- NOTE | 2019-11-15 19:54 | NUR ---
PT IS SO CONFUSED. SHE THINKS WE ARE PART OF A SCHEME TO MAKE MONEY. SHE TOOK HER CAST OFF, WE RE-WRAPPED IT. SH IS VERY PARANOID, SHE IS WANTING SOME WATER YET THINKS WE PUT SOMETHING IN IT. I CONNECTED HER TO HER SON RASHEED THRO THE PHONE. SHE IS SPEAKING TO HIM AND SOUNDS CONFUSED. I WILL GIVE HER SOME CLONAZEPAM AND PAIN MEDS.FALL PREC IN PLACE. LEFT HAND ELEVATED, AND WE ARE TRYING TO KEEP THE ICE PATRICIO IN PLACE.
[2019-11-15 20:10] VITALS: BP 156/84
[2019-11-16 03:55] VITALS: BP 155/84
[2019-11-16 07:22] LABS: CALCIUM 8.1 mg/dL (8.5-10.1); CREATININE 0.9 mg/dL (0.6-1.0); MAGNESIUM 1.4 mg/dL (1.8-2.4); POTASSIUM 3.5 mmol/L (3.5-5.1)
[2019-11-16 08:08] VITALS: BP 176/81
[2019-11-16 10:44] VITALS: BP 148/72
--- NOTE | 2019-11-16 13:28 | NUR ---
ON-GOING ASSESSMENT: CM REVIEWED CHART AND SPOKE WITH ATTENDING. CONSULT WAS PLACED FOR DR. BERNAL PATIENT IS VERY CONFUSED TODAY AND PER ATTENDING HAS HAD SOME COMBATIVENESS WITH BEDSIDE RN. CM ATTEMPTED TO REACH PATIENTS SON MELE BUT UNABLE TO AT THIS TIME AND VM WAS LEFT. CM SPOKE WITH PATIENT ABOUT POSSIBLE SNF (WHICH WAS DISCUSSED WITH SON DAY PRIOR). PT WAS AGREEABLE FOR SNF BUT ALSO UNCLEAR HOW MUCH PT IS RETAINING SHE IS CONFUSED. CM SPOKE WITH [facility] WHO REPORTS THEY WILL LIKELY BE ABLE TO ACCEPT PT AT DISCHARGE HOWEVER THEY WILL NEED A RELEASE OF INFORMATION FORM (SO THEY CAN GET BENEFIT INFORMATION FROM PATIENTS SECONDARY INSURANCE) PRIOR TO ACCEPTING. CM COMPLETED FORM AND FAXED TO [facility]. CM ALSO SENT THEM NEGATIVE COVID TEST. CM AWAITING PSYCH CONSULT. CM WILL CONTINUE TO FOLLOW TO ASSIST NEEDED.
--- NOTE | 2019-11-16 16:05 | EKG ---
[facility] [place] [address] [place] [address] ELECTROCARDIOGRAM REPORT Name: KARLA BROOKS Room #: 437-P ADM IN M.R.#: [id number] Admission: 11/15/19 Attend Phys: Estephania Kendrick MD Discharge: Date of : 31 Report #: [id number] THIS REPORT FOR: cc: Ange Mosquera MD, Julie MD Couchonnal,Carlos Feliciano MD ~ THIS REPORT FOR: //name// [facility] Test Date: 2019-11-16 Test Time: 14:42:36 Pat Name: KARLA BROOKS Department: Room: 437 P Gender: F Senior Svp: Nasima GOMEZ : 1935 Requested By: Melinda Montgomery Order Number: [id number] MD: Carlos Kelley Measurements Intervals [place] Rate: 70 P: 78 CA: 243 QRS: -61 QRSD: 186 T: 113 QT: 460 QTc: 497 Interpretive Statements Sinus rhythm Prolonged CA interval Left bundle branch block Compared to ECG 11/14/2019 22:44:09 First degree AV block now present Left bundle-branch block now present Ventricular-paced complex(es) or rhythm no longer present Electronically Signed On 11-16-2019 16:03:59 CDT by Carlos Kelley [email or web address] <ELECTRONICALLY SIGNED> By: Carlos Kelley MD 11/16/19 1603 [id number] Carlos Kelley MD /EPI
--- NOTE | 2019-11-16 16:53 | NUR ---
PT CARE ASSUMED APPROX 0700. ASSESSMENT CHARTED. PT DENIES SOA AND CHEST PAIN. REPORTS INTERMITTENT LEFT WRIST PAIN BUT SOMETIMES REFUSES PAIN MEDS. PT IS CONFUSED AND IMPULSIVE. DRs ARE AWARE. FALL PRECAUTIONS IN PLACE. PT REORIENTED FREQUENTLY. PT REMOVING LEFT WRIST SOFT CAST AT TIMES WELL. EDUCATED. CLINICAL UPDATE GIVEN TO PT'S SON MELE. MELE DID HAVE QUESTIONS AFTER UPDATE BUT WAS REFERRED TO CASE MANAGEMENT FOR NONCLINICAL QUESTIONS. MELE WAS AGREEABLE. MAG REPLACED THIS SHIFT. PT TOLERATING POC. NO DISTRESS NOTED.
[2019-11-16 16:58] VITALS: BP 183/85
[2019-11-16 19:25] VITALS: BP 134/60
--- NOTE | 2019-11-17 04:24 | NUR ---
PT BEEN ALOT CALMER TONIGHT. SHE HAS NOT BEEN FIGHTING. SHE DRANK SOME SODA.SHE TOOK A HYDROCODONE FOR PAIN AND HAS BEEN ASLEEP SINCE THEN. SHE GETS IMPULSIVE.CAST IN PLACE TO LEFT ARM.WILL SOMETIMES BE INCONTINENT BUT SHE IS ABLE TO GET TO THE BSC. FALL PREC IN PLACE. WILL CONTINUE WITH POC TILL EOS.
[2019-11-17 04:35] VITALS: BP 156/69
[2019-11-17 08:11] VITALS: BP 181/70
[2019-11-17 08:49] VITALS: BP 181/70
[2019-11-17] MEDS ORDERED: LORAZEPAM 0.50.5 MG PO (11:35)
[2019-11-17] MEDS ORDERED: DOXYCYCLINE 10100 M2 PO (11:35)
[2019-11-17] MEDS ORDERED: PEPCID20 MG PO (11:35)
[2019-11-17] MEDS ORDERED: HYDROCODON-ACE1 EAC7 PO (11:35)
--- NOTE | 2019-11-17 12:38 | NUR ---
ON-GOING ASSESSMENT: AMANDA REVIEWED CHART AND SPOKE WITH ATTENDING. PT HAS ORDERS TO DISCHARGE TO SNF TODAY. CM NOTIFIED MELVA AT [facility] WHO STATES THEY CAN ACCEPT HER FOR ADMISSION TODAY. CM ALREADY FAXED THEM THE NEGATIVE COVID TEST. CM FAXED D/C PAPERWORK TO THEM AND SHE CONFIRMED THEY RECEIVED IT. CHART COPY WAS ORDERED. AMANDA SPOKE WITH BEDSIDE RN AND PROVIDED THE NUMBER FOR REPORT AND TRANSPORTATION TIME OF 1500. AMANDA ALSO NOTIFIED PATIENTS SON MELE. NO FURTHER NEEDS FROM AMANDA AT THIS TIME.
--- NOTE | 2019-11-17 14:32 | NUR ---
Assumed care of pt at 0700. Pt pleasantly confused. Splint on left upper extremity in place. Pain controlled with prn pain meds. BP this am elevated. Provider aware. Family at bedside. Pt discharging to rehab facility. Report given to nurse at facility. Fall precautions in place.
== END 2019-11-17 15:41 | DRG 562 ==
LOC: ER 22:10 → EROBS 11-15 01:27 → 4S 11-15 01:27
PROVIDERS: Emergency Medicine; Nurse Practitioner Family; ADMIT Internal Medicine; ATTEND Internal Medicine
PROC: 05HB33Z Insertion of Infusion Device into Right Basilic Vein, Percutaneous Approach (ICD-10-PCS; principal; 2019-11-15)
PROC: 0PSJXZZ Reposition Left Radius, External Approach (ICD-10-PCS; principal; 2019-11-15)
PROC: B54MZZA Ultrasonography of Right Upper Extremity Veins, Guidance (ICD-10-PCS; principal; 2019-11-15)
DX: S52.532A Colles' fracture of left radius, initial encounter for closed fracture (principal); G92 Toxic encephalopathy; N17.0 Acute kidney failure with tubular necrosis; N39.0 Urinary tract infection, site not specified; Z96.643 Presence of artificial hip joint, bilateral; Z96.653 Presence of artificial knee joint, bilateral; F41.9 Anxiety disorder, unspecified; M19.90 Unspecified osteoarthritis, unspecified site; I25.10 Atherosclerotic heart disease of native coronary artery without angina pectoris; E03.9 Hypothyroidism, unspecified; K21.9 Gastro-esophageal reflux disease without esophagitis; F32.9 Major depressive disorder, single episode, unspecified; N18.3 Chronic kidney disease, stage 3 (moderate); E66.9 Obesity, unspecified; Z20.828 Contact with and (suspected) exposure to other viral communicable diseases; E83.42 Hypomagnesemia; G47.00 Insomnia, unspecified; R41.0 Disorientation, unspecified; K27.9 Peptic ulcer, site unspecified, unspecified as acute or chronic, without hemorrhage or perforation; F03.90 Unspecified dementia, unspecified severity, without behavioral disturbance, psychotic disturbance, mood disturbance, and anxiety; R33.9 Retention of urine, unspecified; F39 Unspecified mood [affective] disorder; I12.9 Hypertensive chronic kidney disease with stage 1 through stage 4 chronic kidney disease, or unspecified chronic kidney disease; Z68.31 Body mass index [BMI] 31.0-31.9, adult; Z95.0 Presence of cardiac pacemaker; Z90.49 Acquired absence of other specified parts of digestive tract; Z98.42 Cataract extraction status, left eye; Z98.41 Cataract extraction status, right eye; Z88.6 Allergy status to analgesic agent; Z87.11 Personal history of peptic ulcer disease; Z88.1 Allergy status to other antibiotic agents; Z88.0 Allergy status to penicillin; Z88.2 Allergy status to sulfonamides; Z88.8 Allergy status to other drugs, medicaments and biological substances; Z47.89 Encounter for other orthopedic aftercare; W18.39XA Other fall on same level, initial encounter; Y93.01 Activity, walking, marching and hiking; Y92.89 Other specified places as the place of occurrence of the external cause; Y99.8 Other external cause status
CPT/HCPCS: 10195; 27000

== ENCOUNTER → 2020-08-22 | Outpatient (CLI) | payer OTHER ==
[~2020-08-22] MED LIST changes: +DOXYCYCLINE 10100 M2 PO; +LORAZEPAM 0.50.5 MG PO; +PEPCID20 MG PO
== END ==
LOC: BC 09:50
PROVIDERS: ATTEND Internal Medicine
DX: Z12.31 Encounter for screening mammogram for malignant neoplasm of breast (principal)